=== PATIENT | male | born 1970 | race Two or more races ===

== ENCOUNTER 2017-07-05 22:58 | Emergency (ER) | payer SELFPAY ==
[~2017-07-05] VITALS: Ht 182.9 cm; Wt 97.9 kg
[2017-07-05 23:08] VITALS: BP 188/94
[2017-07-05 23:38] LABS: HEMATOCRIT 45.6 % (38.0-50.0); HEMOGLOBIN 16.1 G/DL (12.5-16.6); MCH 30.3 PG (29.0-34.0); MCHC 35.3 G/DL (30.0-36.0); MCV 85.9 FL (86-99); PLATELET COUNT 120 K/uL (156-360); RBC DIS.WIDTH-CV 13.4 % (11.8-14.6); RBC DIS.WIDTH-SD 41.9 % (39-53); RED BLOOD COUNT 5.31 M/uL (4.00-5.50); WHITE BLOOD COUNT 9.7 K/uL (4.1-10.2)
[2017-07-05 23:48] LABS: CHLORIDE 103 mEq/L (99-109); POTASSIUM 3.6 mEq/L (3.7-5.4); SODIUM 137 mEq/L (136-147)
[2017-07-05 23:49] LABS: GLUCOSE 99 mg/dL (70-99)
[2017-07-05 23:53] LABS: CREATININE 1.3 mg/dL (0.6-1.3)
[2017-07-05 23:54] LABS: GFR ESTIMATE (CALCULATED) > 59 mL/min/ (58.99-99999); UREA NITROGEN (BUN) 18 mg/dL (9-23)
[2017-07-05 23:59] LABS: TROP-I INTERPRETATION NEGATIVE; TROPONIN-I 0.02 ng/mL (0.0-0.30)
== END 2017-07-06 00:39 | disposition left against medical advice (07) ==
LOC: EME 22:58
DX: R07.9 Chest pain, unspecified (principal); M54.9 Dorsalgia, unspecified; R07.0 Pain in throat; R06.02 Shortness of breath; Z53.21 Procedure and treatment not carried out due to patient leaving prior to being seen by health care provider
CPT/HCPCS: 71046; 80048; 84484; 85027; 93005